=== PATIENT | male | born 2000 | race Two or more races ===

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

== ENCOUNTER 2021-03-08 15:52 | Emergency (ER) | payer OTHER ==
[~2021-03-08] VITALS: Ht 167.6 cm; Wt 89.4 kg
[2021-03-08 16:58] VITALS: BP 135/87
== END 2021-03-08 17:00 | disposition home or self-care (01) ==
LOC: ER 15:52
DX: R07.89 Other chest pain (principal); F12.10 Cannabis abuse, uncomplicated; R42 Dizziness and giddiness
CPT/HCPCS: 71046; 93005

== ENCOUNTER 2022-05-27 05:11 | Emergency (ER) | payer OTHER ==
[~2022-05-27] VITALS: Ht 167.6 cm; Wt 88.0 kg
[2022-05-27 08:23] VITALS: BP 150/99
== END 2022-05-27 09:29 | disposition home or self-care (01) ==
LOC: ER 05:13
DX: R51.9 Headache, unspecified (principal); F12.10 Cannabis abuse, uncomplicated
CPT/HCPCS: 70450

== ENCOUNTER 2022-05-30 18:27 | Emergency (ER) | payer OTHER ==
[~2022-05-30] VITALS: Ht 167.6 cm; Wt 86.3 kg
[2022-05-30 19:20] VITALS: BP 138/95
[2022-05-30] MEDS ORDERED: AMOX-277 PO (20:35)
== END 2022-05-30 20:45 | disposition home or self-care (01) ==
LOC: ER 18:27
DX: J32.9 Chronic sinusitis, unspecified (principal); F12.10 Cannabis abuse, uncomplicated

== ENCOUNTER 2022-06-05 02:55 | Emergency (ER) | payer OTHER ==
[~2022-06-05] VITALS: Ht 167.6 cm; Wt 86.4 kg
[~2022-06-05 02:55] MED LIST: AMOX-277 PO
[2022-06-05 03:37] LABS: Basophils # (auto) 0 10 ^3/uL (0-0.2); Basophils % (auto) 0.6 % (0.0-2.0); Eosinophils # (auto) 0.1 10 ^3/uL (0-0.8); Eosinophils % (auto) 1.4 % (0.0-7.0); Lymphocytes # (auto) 1.8 10 ^3/uL (0.4-5.4); Lymphocytes % (auto) 22.5 % (10.0-50.0); Mean Corpuscular Hemoglobin 29.5 pg (28.0-32.0); Mean Corpuscular Hgb Conc. 34.1 g/dL (32.0-36.0); Mean Corpuscular Volume 86.5 fL (80.0-100.0); Monocytes # (auto) 0.6 10 ^3/uL (0-1.3); Monocytes % (auto) 7.6 % (0.0-12.0); Neutrophils # (auto) 5.6 10 ^3/uL (1.6-8.6); Neutrophils % (auto) 67.9 % (37.0-80.0); Nucleated Red Blood Cells % 0.1 %; Red Blood Cells 5.78 10^6/uL (4.5-5.90); White Blood Cell 8.2 10^3/uL (4.4-10.8)
[2022-06-05 03:55] LABS: Albumin 4.4 g/dL (3.4-5.0); Calcium 9.1 mg/dL (8.5-10.1); Potassium 3.8 mmol/L (3.5-5.1)
[2022-06-05 03:58] LABS: Bilirubin, Total 0.7 mg/dL (0.2-1.0); Total Protein 7.7 g/dL (6.4-8.2)
[2022-06-05] MEDS ORDERED: HYDR50CA PO (07:40)
[2022-06-05 08:14] VITALS: BP 129/86
== END 2022-06-05 08:24 | disposition home or self-care (01) ==
LOC: ER 02:55
DX: R07.89 Other chest pain (principal); F41.9 Anxiety disorder, unspecified; F12.10 Cannabis abuse, uncomplicated
CPT/HCPCS: 36415; 71045; 80053; 83880; 84484; 85025; 93005

== ENCOUNTER 2022-06-07 13:13 | Emergency (ER) | payer OTHER ==
[~2022-06-07 13:13] MED LIST changes: +HYDR50CA PO
== END 2022-06-07 16:17 | disposition left against medical advice (07) ==
LOC: ER 13:13
DX: H92.03 Otalgia, bilateral (principal); Z53.21 Procedure and treatment not carried out due to patient leaving prior to being seen by health care provider

== ENCOUNTER 2022-06-09 22:04 | Emergency (ER) | payer OTHER ==
[~2022-06-09] VITALS: Ht 167.6 cm; Wt 86.0 kg
[2022-06-09 23:16] VITALS: BP 144/87
== END 2022-06-10 00:24 | disposition left against medical advice (07) ==
LOC: ER 22:05
DX: R51.9 Headache, unspecified (principal); H92.09 Otalgia, unspecified ear; Z53.21 Procedure and treatment not carried out due to patient leaving prior to being seen by health care provider

== ENCOUNTER 2022-06-22 22:23 | Emergency (ER) | payer MEDICAID, OTHER ==
[~2022-06-22] VITALS: Ht 167.6 cm; Wt 100.0 kg
[2022-06-22] MEDS ORDERED: LORazepam 2MG/ML-1ML VIAL IV ONE (22:30)
[2022-06-22] MEDS ORDERED: SODIUM CHLORIDE 0.9% 1,000 ML IV ONE (22:30)
[2022-06-23 01:06] LABS: Basophils # (auto) 0 10 ^3/uL (0-0.2); Basophils % (auto) 0.2 % (0.0-2.0); Eosinophils # (auto) 0 10 ^3/uL (0-0.8); Eosinophils % (auto) 0.3 % (0.0-7.0); Hemoglobin 15.8 g/dL (13.5-17.5); Lymphocytes # (auto) 0.8 10 ^3/uL (0.4-5.4); Lymphocytes % (auto) 6.4 % (10.0-50.0); Mean Corpuscular Hemoglobin 29.7 pg (28.0-32.0); Mean Corpuscular Hgb Conc. 35.1 g/dL (32.0-36.0); Mean Corpuscular Volume 84.5 fL (80.0-100.0); Monocytes # (auto) 0.8 10 ^3/uL (0-1.3); Monocytes % (auto) 6.9 % (0.0-12.0); Neutrophils # (auto) 10.2 10 ^3/uL (1.6-8.6); Neutrophils % (auto) 86.2 % (37.0-80.0); Red Blood Cells 5.32 10^6/uL (4.5-5.90); Red Cell Distribution Width 13.4 % (11.8-14.3); White Blood Cell 11.9 10^3/uL (4.4-10.8)
[2022-06-23 01:27] LABS: Albumin 4.1 g/dL (3.4-5.0); BUN/Creatinine Ratio 10.8; Calcium 8.8 mg/dL (8.5-10.1)
[2022-06-23 01:30] LABS: Bilirubin, Total 0.8 mg/dL (0.2-1.0); Total Protein 7.1 g/dL (6.4-8.2)
[2022-06-23 03:01] LABS: Urine Bacteria FEW /hpf (None Seen); Urine Blood Negative /uL (Negative); Urine Specific Gravity 1.004 (1.001-1.035); Urine WBC <1 /hpf (0 - 3)
[2022-06-23] MEDS ORDERED: CEPH-322 PO (05:20)
[2022-06-23 05:45] VITALS: BP 125/71
[2022-06-24] MEDS ORDERED: CEPH-322 PO (17:22)
[2022-06-26] MEDS ORDERED: CEPH-510 PO (16:02)
== END 2022-06-23 06:16 | disposition home or self-care (01) ==
LOC: ER 22:23 → EDBD 22:23 → ER 06-23 05:58
DX: R07.89 Other chest pain (principal); F41.9 Anxiety disorder, unspecified; D72.829 Elevated white blood cell count, unspecified; Z79.2 Long term (current) use of antibiotics; Z79.899 Other long term (current) drug therapy
CPT/HCPCS: 36415; 71045; 80053; 81001; 84484; 85025; 85379; 93005; 96361; 96374; 99285; J2060; J7030

== ENCOUNTER 2023-08-23 21:21 | Emergency (ER) | payer MEDICAID ==
[~2023-08-23] VITALS: Ht 167.6 cm; Wt 97.4 kg
[~2023-08-23 21:21] MED LIST changes: -AMOX-277 PO; +AMOX875T4 PO; +CEPH-510 PO; +CEPH250C PO
[2023-08-23 21:33] VITALS: BP 150/98; PULSE 113; RESP 17; O2SAT 96
[2023-08-23 21:42] LABS: Basophils # (auto) 0 10 ^3/uL (0-0.2); Basophils % (auto) 0.5 % (0.0-2.0); Eosinophils # (auto) 0.2 10 ^3/uL (0-0.8); Eosinophils % (auto) 2.1 % (0.0-7.0); Hematocrit 48.8 % (41.0-53.0); Hemoglobin 16.7 g/dL (13.5-17.5); Lymphocytes # (auto) 2.3 10 ^3/uL (0.4-5.4); Lymphocytes % (auto) 26.7 % (10.0-50.0); Mean Corpuscular Hemoglobin 29.6 pg (28.0-32.0); Mean Corpuscular Hgb Conc. 34.2 g/dL (32.0-36.0); Mean Corpuscular Volume 86.7 fL (80.0-100.0); Monocytes # (auto) 0.6 10 ^3/uL (0-1.3); Monocytes % (auto) 6.5 % (0.0-12.0); Neutrophils # (auto) 5.6 10 ^3/uL (1.6-8.6); Neutrophils % (auto) 64.2 % (37.0-80.0); Red Blood Cells 5.63 10^6/uL (4.5-5.90); Red Cell Distribution Width 13.2 % (11.8-14.3); White Blood Cell 8.7 10^3/uL (4.4-10.8)
[2023-08-23 21:59] LABS: Alanine Aminotransferase 96 U/L (7-40); Alkaline Phosphatase 79 U/L (46-116); Anion Gap 9 (5-15); Aspartate Aminotransferase 36 U/L (13-40); BUN/Creatinine Ratio 11.5 (10.0-20.0); Bilirubin, Total 0.8 mg/dL (0.2-1.0); Blood Urea Nitrogen 11 mg/dL (9-23); Calcium 9.7 mg/dL (8.7-10.4); Carbon Dioxide 23 mmol/L (20-30); Chloride 108 mmol/L (98-107); Glucose 143 mg/dL (74-106); Potassium 3.2 mmol/L (3.5-5.1); Sodium 140 mmol/L (136-145)
[2023-08-23 22:00] LABS: Total Protein 7.6 g/dL (5.7-8.2)
[2023-08-23 22:22] LABS: INR 0.98 (0.9-1.15); Partial Thromboplastin Time 26.1 SEC (24.5-34.5); Prothrombin Time 10.3 sec (9.3-11.8)
== END 2023-08-23 23:32 | disposition left against medical advice (07) ==
LOC: ER 21:21
DX: R00.2 Palpitations (principal); Z53.21 Procedure and treatment not carried out due to patient leaving prior to being seen by health care provider
CPT/HCPCS: 36415; 80053; 83735; 83880; 84484; 85025; 85610; 85730; 93005

== ENCOUNTER 2024-05-31 17:12 | Emergency (ER) | payer MEDICAID ==
[~2024-05-31] VITALS: Ht 170.2 cm; Wt 95.5 kg
[2024-05-31] MEDS ORDERED: IBUP-1456 PO (21:54)
[2024-05-31 22:05] VITALS: BP 138/84; PULSE 74; RESP 18; TEMP 98.3; O2SAT 97
== END 2024-05-31 22:08 | disposition home or self-care (01) ==
LOC: ER 17:12
DX: S83.92XA Sprain of unspecified site of left knee, initial encounter (principal); F12.10 Cannabis abuse, uncomplicated; W51.XXXA Accidental striking against or bumped into by another person, initial encounter; Y93.72 Activity, wrestling; Y92.89 Other specified places as the place of occurrence of the external cause; Y99.8 Other external cause status
CPT/HCPCS: 29505; 73562

== ENCOUNTER 2025-03-11 14:03 | Inpatient (IN) | payer MEDICAID ==
[~2025-03-11] VITALS: Ht 167.6 cm; Wt 98.7 kg
[~2025-03-11 14:03] MED LIST changes: +IBUP-1456 PO
--- NOTE | 2025-03-11 14:33 | ED.PDOC ---
GI ASSESSMENT HPI Comments HPI: 25-year-old male presents to the emergency department with a chief complaint of blood in stool onset 3 months. Patient has been experiencing intermittent blood in stool, bright red, for the past 3 months as well as LLQ pain. For the past 2 days, stool has been dark, black color and is also experiencing nausea. Denies vomiting, chest pain, dysuria, hematuria, hematemesis, fever, chills. No other symptoms or modifying factors present at this time. Initial Vitals BP: 160/109 HR: 113 RR: 16 O2 Sat: 98 % Temp: 98 F Past Medical history: anxiety Past Surgical history: Denies Medications: Denies Social History: marijuana Allergies: NKDA HPI: Poor Historian. Past Medical History: Past Surgical History: REVIEW OF SYSTEMS: CONSTITUTIONAL: Denies acute: fever, diaphoresis, chills, generalized weakness. HEAD: Denies acute: headache, photophobia Eyes: Denies acute: Double vision, vision loss, eye pain, eye discharge. EARS: Denies acute: tinnitus, hearing loss, ear discharge, ear pain, THROAT: Denies acute: sore throat, swelling, difficulty swallowing , pain with swallowing, change in voice. NECK: Denies acute: neck pain, neck swelling, stiff neck. HEART: Denies acute : chest pain, palpitations, LUNGS: Denies acute: SOB, wheezing, cough, hemoptysis ABDOMEN: Denies acute: Vomiting, diarrhea, hematemesis, SKIN: Denies acute: rash, redness, lesions, itchiness. EXTREMITIES: Denies acute: calf pain, numbness, tingling, weakness, denies pain in extremity. Denies acute: Low back pain. Neuro: Denies acute: focal neurological deficit, motor or sensory focal neurological deficit, tremors, seizure like activity, confusion, dizziness, change in mental status, loss of bowel or bladder function, cauda equina like symptoms. : Denies acute: dysuria, hematuria, flank pain, increase in urinary frequency. PSYCH: Denies acute: hallucination, suicidal ideation, homicidal ideation. PHYSICAL EXAM: General: -----[id number]---acute distress, awake and alert. Head: normocephalic, atraumatic. Neck: supple, trachea is midline, no swelling. Throat: Normal phonation. Eyes:, no erythema, no purulent discharge, no proptosis, no icterus. Heart: regular rate, regular rhythm, no significant murmur appreciated. Lungs: no apparent respiratory distress, Able to speak in full sentences. No wheezing, no rhonchi, no crackles. No stridors Clear to auscultation bilaterally. Abdomen: Left-sided tender to palpation, non distended, soft, no guarding, no rebound, + bowel sounds. Obese Neuro: Awake, Alert, oriented to name, self, situation, follows commands GCS=15. Speech is normal. Skin: no petechia, no purpura, no cyanosis, non-pale, not jaundice. Lower extremities: --no - Pitting edema no deformity, no focal swelling, no calf TTP. Makes eye contact. moves all four extremities. Face: no apparent facial droop. Ambulating in the ED independently. ED COURSE: DISCLAIMER: This medical document was created using an electronic medical record system with voice recognition software and computerized dictation system. Although this document has been carefully reviewed, there might still be some phonetic and typographical errors. Occasional wrong-word or "sound-alike" substitutions may have occurred due to the inherent limitations of voice recognition software. These areas are purely typographical due to imperfections of the software programs and do not reflect any compromise in the patient's medical care. Please read the chart carefully and recognize, using context, where these substitutions have occurred. Chief Complaint: GI Bleed Time Seen by MD: 14:25 Primary Care Provider: YOUNG Reviewed Notes: Medications, Allergies Allergies: Coded Allergies: NO KNOWN ALLERGIES (Unverified , 03/29/19) Home Meds Active Scripts Ibuprofen (Ibuprofen) 800 Mg Tab, 1 TAB PO TID PRN, #30 TAB 0 Refills Prov:PAUL DUONG 05/31/24 Cephalexin ( Keflex 500) 500 Mg Cap, 1 CAP PO TID for 7 Days, #21 CAP Prov:CANDIS HOLMAN MD 06/26/22 Cephalexin (KEFLEX CAPSULE) 250 Mg Cp, 500 MG PO TID for 5 Days, #15 BOTTLE Prov:CANDIS HOLMAN MD 06/24/22 Cephalexin (KEFLEX CAPSULE) 250 Mg Cp, 500 MG PO TID for 5 Days, #15 Prov:CANDIS HOLMAN MD 06/23/22 Hydroxyzine Pamoate (Vistaril) 50 Mg Cap, 50 MG PO QHSP PRN, #30 CAP Prov:DOMINIC RDZ 06/05/22 Amoxicillin & Pot Clavulanate (Amoxicillin/Potassium Cla) 875 Mg Tab, 1 TAB PO BID for 7 Days, #14 TAB Prov:MALLIKA LEGER 05/30/22 Information Source: Patient Mode of Arrival: Ambulatory Timing: Months Duration: Intermittent Prehospital treatment: None Quality: None Vomitus: None Stool: Tarry, Blood Streaked Severity: Moderate Recent: None Recent Hx of: None Pain Location: LLQ Modifying Factors: Nothing Associated sign and symptoms: Nausea, Melena, Abdominal Pain (LLQ), Blood in Stool Past Medical History PAST MEDICAL HISTORY: Anxiety Surgical History: Denies all surgeries Family History Family History: Unknown Social History Smoker: Non-Smoker Alcohol: Denies ETOH Use Drugs: Marijuana Lives In: Home Was a procedure done? Was a procedure done?: No GI differential Dx Differential Diagnosis: Other (DDX include but not limited to diverticulitis, colitis, gastroenteritis, acute abdomen, SBO, enteritis, constipation, volvulus, appendicitis, Gallbladder disease, choledocolithiasis, ascending cholangitis, pancreatitis, intraAbdominal mass/neoplasm, hepatitis, UTI, pylonephritis, kidney stone, aneurysm, dissection, Inflammatory bowel disease, gastroparesis, ischemic bowel.) X-Ray, Labs, Meds, VS Vital Signs Date Time Temp Pulse Resp B/P (MAP) Pulse Ox O2 Delivery O2 Flow Rate FiO2 03/11/25 17:44 132 20 97 Room Air 03/11/25 17:44 98.5 124 20 150/110 (123) 97 98.5 03/11/25 14:23 98.0 113 16 160/109 (126) 98 98.0 Lab Test 03/11/25 16:56 03/11/25 14:41 03/11/25 14:38 03/11/25 14:34 Range/Units Lactic Acid Level 2.4 *H 2.1 *H 0.4-2.0 mmol/L White Blood Count 5.8 4.4-10.8 10^3/uL Red Blood Count 6.16 H 4.5-5.90 10^6/uL Hemoglobin 18.1 H 13.5-17.5 g/dL Hematocrit 52.3 41.0-53.0 % Mean Corpuscular Volume 84.8 80.0-100.0 fL Mean Corpuscular Hemoglobin 29.4 28.0-32.0 pg Mean Corpuscular Hemoglobin Concent 34.7 32.0-36.0 g/dL Red Cell Distribution Width 13.4 11.8-14.3 % Platelet Count 212 140-450 10^3/uL Mean Platelet Volume 9.8 6.9-10.8 fL Neutrophils (%) (Auto) 51.2 37.0-80.0 % Lymphocytes (%) (Auto) 31.8 10.0-50.0 % Monocytes (%) (Auto) 13.3 H 0.0-12.0 % Eosinophils (%) (Auto) 3.2 0.0-7.0 % Basophils (%) (Auto) 0.5 0.0-2.0 % Neutrophils # (Auto) 3.0 1.6-8.6 10 ^3/uL Lymphocytes # (Auto) 1.9 0.4-5.4 10 ^3/uL Monocytes # (Auto) 0.8 0-1.3 10 ^3/uL Eosinophils # (Auto) 0.2 0-0.8 10 ^3/uL Basophils # (Auto) 0 0-0.2 10 ^3/uL Nucleated Red Blood Cells 0.1 % Sodium Level 140 136-145 mmol/L Potassium Level 3.5 3.5-5.1 mmol/L Chloride Level 104 98-107 mmol/L Carbon Dioxide Level 24 20-31 mmol/L Anion Gap 12 5-15 Blood Urea Nitrogen 8 L 9-23 mg/dL Creatinine 0.87 0.700-1.30 mg/dL Glomerular Filtration Rate Calc 123 >90 mL/min BUN/Creatinine Ratio 9.2 L 10.0-20.0 Serum Glucose 99 74-106 mg/dL Calcium Level 9.5 8.7-10.4 mg/dL Magnesium Level 2.0 1.6-2.6 mg/dL Total Bilirubin 0.7 0.2-1.0 mg/dL Aspartate Amino Transferase (AST) 45 H <34 U/L Alanine Aminotransferase (ALT) 82 H 7-40 U/L Alkaline Phosphatase 79 46-116 U/L Total Protein 7.7 5.7-8.2 g/dL Albumin 5.0 H 3.2-4.8 g/dL Lipase 30 12-53 U/L Urine Color Colorless Yellow Urine Clarity Clear Clear Urine pH 6.0 5.0-9.0 Urine Specific [place] 1.005 1.001-1.035 Urine Protein Negative Negative Urine Ketones Negative Negative Urine Blood Negative Negative /uL Urine Nitrite Negative Negative Urine Bilirubin Negative Negative Urine Urobilinogen Normal Negative mg/dL Urine Leukocyte Esterase Negative Negative /uL Urine RBC None seen 0 - 3 /hpf Urine Microscopic WBC 1 0-3 /HPF Urine Squamous Epithelial Cells None seen <5 /hpf Urine Bacteria None seen None Seen /hpf Urine Glucose Normal Normal mg/dL Stool Occult Blood Negative Negative Stool Occult Blood Sample #3 Negative Current Medications Medications (Trade) Dose Ordered Sig/Desi Route Start Time Stop Time Status Last Admin Sodium Chloride 1,000 ml @ 1,000 mls/hr Q1H ONCE IV 03/11/25 14:30 03/11/25 15:29 DC 03/11/25 15:29 Pantoprazole Sodium (Protonix) 40 mg ONCE ONCE IV 03/11/25 14:30 03/11/25 14:31 DC 03/11/25 15:46 Ciprofloxacin 200 ml @ 200 mls/hr ONCE ONCE IV 03/11/25 17:45 03/11/25 18:44 DC 03/11/25 18:52 Sodium Chloride 1,000 ml @ 1,000 mls/hr Q1H ONCE IV 03/11/25 17:45 03/11/25 18:44 DC 03/11/25 18:45 Sodium Chloride 1,000 ml @ 1,000 mls/hr Q1H ONCE IV 03/11/25 17:45 03/11/25 18:44 AK 03/11/25 18:03 [place] [address] Ph: [phone] DIAGNOSTIC IMAGING Diagnostic Imaging Report : [id number] Signed PATIENT: LAZARO CHUNG ACCT: [id number] UNIT: [id number] : 2000 LOC: ER ROOM / BED: / AGE / SEX: 25 / M ADM STATUS: REG ER SERVICE 1428 ORDERING PHYSICIAN: WAYNE MURDOCK DO PROCEDURE(s): ABPLIV - CT AB PEL WITH IV CON ONLY REASON: rectal bleed ORDER NUMBER(s): [id number], ACCESSION NUMBER(s): [id number] Indication: rectal bleed Technique: CT axial images of the abdomen and pelvis are obtained with intravenous contrast. Coronal and sagittal reformats were obtained. Radiation Dose Information: CTDI volume is 16 mGy. Dose-length product is 864 mGy*cm Comparison: None FINDINGS: The lung bases demonstrate no pleural effusion. Adrenal glands, spleen, pancreas unremarkable. Hepatic steatosis. No CT evidence for cholelithiasis. No hydronephrosis. Stomach partially distended. Small bowel loops normal in caliber. Normal appendix. Moderate volume stool in the colon. Abdominal aorta normal in caliber. Bladder distended. No free pelvic fluid. No inguinal lymphadenopathy. No aggressive osseous process. IMPRESSION: No CT evidence for acute abnormality of the abdomen / pelvis. Hepatic steatosis. ATED BY: CINDY VALENCIA MD DICTATED DATE/TIME: 03/11/251707 SIGNED BY: CINDY VALENCIA MD SIGNED DATE/TIME: 03/11/251707 CC: Time of 1ST Reevaluation: 14:55 Reevaluation 1ST: Unchanged Patient Education/Counseling: Diagnosis, Treatment Family Education/Counseling: No Family Present Comments Patient presented with the above HPI.---rectal bleed and abdominal pain---workup was initiated. patient was found with the above mentioned diagnosis. the following medications were ordered: please refer to order lists of meds and tests obtained by myself Dr. Murdock. Patient ED course and VS have been stabilized. Patient has been reassessed in the ED and remained in a stable condition. Pertinent incidental findings were discussed with the patient and/or family. Patient/family voices understanding and is agreeable with plan. Patient has been observed in the ED adequate length of time to insure improvement/stability. Escalation of care considered: Consideration of escalation to observation or admission Patient's lactic acid was rising. Sepsis protocol was initiated with weight based fluid resuscitation. Patient was ADMITTED to the medicine team for further evaluation and treatment of their presentation. All the reports of any imaging studies that were ordered by myself were reviewed by myself. Departure 1 Departure Time of Disposition: 15:54 Impression: Primary Impression: GI bleed Disposition: ADMITTED INPATIENT Admit to: Tele Condition: Guarded Discharged With: Self Critical Care Note Critical Care Time?: No I personally scribed for WAYNE MURDOCK DO ([email or web address]) on 03/11/25 at 14:33. Electronically submitted by Veronica Nunn ([email or web address]). I personally scribed for WAYNE MURDOCK DO ([email or web address]) on 03/11/25 at 17:37. Electronically submitted by Veronica Nunn ([email or web address]). WAYNE MURDOCK DO Mar 11, 2025 14:33
[2025-03-11 14:58] LABS: Basophils # (auto) 0 10 ^3/uL (0-0.2); Eosinophils # (auto) 0.2 10 ^3/uL (0-0.8); Mean Corpuscular Volume 84.8 fL (80.0-100.0); Monocytes # (auto) 0.8 10 ^3/uL (0-1.3); Nucleated Red Blood Cells % 0.1 %; White Blood Cell 5.8 10^3/uL (4.4-10.8)
[2025-03-11 15:00] LABS: Basophils % (auto) 0.5 % (0.0-2.0); Eosinophils % (auto) 3.2 % (0.0-7.0); Hematocrit 52.3 % (41.0-53.0); Hemoglobin 18.1 g/dL (13.5-17.5); Lymphocytes # (auto) 1.9 10 ^3/uL (0.4-5.4); Lymphocytes % (auto) 31.8 % (10.0-50.0); Mean Corpuscular Hemoglobin 29.4 pg (28.0-32.0); Mean Corpuscular Hgb Conc. 34.7 g/dL (32.0-36.0); Monocytes % (auto) 13.3 % (0.0-12.0); Neutrophils % (auto) 51.2 % (37.0-80.0); Platelet Count (auto) 212 10^3/uL (140-450); Red Blood Cells 6.16 10^6/uL (4.5-5.90); Red Cell Distribution Width 13.4 % (11.8-14.3)
[2025-03-11 15:02] LABS: Urine Bacteria None Seen /hpf (None Seen)
[2025-03-11 15:18] LABS: Urine Blood Negative /uL (Negative); Urine Clarity Clear (Clear); Urine Color Colorless (Yellow); Urine Protein, UAD Negative (Negative); Urine Specific Gravity 1.005 (1.001-1.035); Urine Squamous Epithelial Cell None Seen /hpf (<5); Urine Urobilinogen Normal (Negative); Urine WBC 1 /HPF (0-3)
[2025-03-11 15:19] LABS: Lactic Acid w/Reflex 2.1 mmol/L (0.4-2.0)
[2025-03-11] MEDS: IOHEXOL 300 MG/ML 100ML BOTTLE IJ ONE (15:20)
[2025-03-11 15:28] LABS: Alkaline Phosphatase 79 U/L (46-116); Anion Gap 12 (5-15); BUN/Creatinine Ratio 9.2 (10.0-20.0); Calcium 9.5 mg/dL (8.7-10.4); Carbon Dioxide 24 mmol/L (20-31); Chloride 104 mmol/L (98-107); Glucose 99 mg/dL (74-106); Lipase 30 U/L (12-53); Sodium 140 mmol/L (136-145); Total Protein 7.7 g/dL (5.7-8.2)
[2025-03-11 15:29] LABS: Alanine Aminotransferase 82 U/L (7-40); Aspartate Aminotransferase 45 U/L (<34); Bilirubin, Total 0.7 mg/dL (0.2-1.0); Blood Urea Nitrogen 8 mg/dL (9-23); Potassium 3.5 mmol/L (3.5-5.1)
[2025-03-11] MEDS: SODIUM CHLORIDE 0.9% 1,000 ML IV ONE ×3 (15:29→18:45)
[2025-03-11] MEDS: PANTOPRAZOLE 40 MG/10 ML VIAL INJ IV ONE (15:46)
--- NOTE | 2025-03-11 17:10 | DVH ---
Indication: rectal bleed Technique: CT axial images of the abdomen and pelvis are obtained with intravenous contrast. Coronal and sagittal reformats were obtained. Radiation Dose Information: CTDI volume is 16 mGy. Dose-length product is 864 mGy*cm Comparison: None FINDINGS: The lung bases demonstrate no pleural effusion. Adrenal glands, spleen, pancreas unremarkable. Hepatic steatosis. No CT evidence for cholelithiasis. No hydronephrosis. Stomach partially distended. Small bowel loops normal in caliber. Normal appendix. Moderate volume stool in the colon. Abdominal aorta normal in caliber. Bladder distended. No free pelvic fluid. No inguinal lymphadenopa thy. No aggressive osseous process. IMPRESSION: No CT evidence for acute abnormality of the abdomen / pelvis. Hepatic steatosis.
[2025-03-11] MEDS: CIPROFLOXACIN 400MG/200ML 200 ML IV ONE (18:52)
[2025-03-12] MEDS ORDERED: ACETAMINOPHEN 325 MG TAB PO PRN (00:15)
[2025-03-12] MEDS ORDERED: hydrOXYzine 25 MG TAB or CAP PO PRN (00:15)
[2025-03-12] MEDS: SUCRALFATE 1 GM/10 ML ORAL SUSP PO ONE (01:16)
--- NOTE | 2025-03-12 04:55 | DVHHPRES ---
History of Present Illness Resident Creating Document: LAURAPANFILOROBBEA RESIDENT History of Present Illness Patient is a 25-year-old male with a significant past medical history presented to the ED with a chief complaint of abdominal pain and noticing blood in his stools. Patient reported that since the last 6-8 months he has been having intermittently episodes where he would notice blood when he wipes off and 1 episode where there was bradford blood in the toilet. Did not seek medical attention because he has anxiety disorder was afraid to come to the hospital. Also reports symptoms of acidity, bloating after he eats a meal and has been taking a lot of [id number] medications like magnesium but only recently took omeprazole. Patient denied weight loss, denies constipation lower abdominal pain, denies nausea or vomiting, denies aspirin, alcohol use. No history of liver cirrhosis. Denies any history of inflammatory bowel disease in the family, no history of colon cancer. Past medical history: Anxiety No surgical history Social history: Patient lives with the family and reports occasional alcohol and smoking once in 2 weeks, denies any other drug use No home medications Review of Systems Review of Systems Patient seen and examined at the bedside Reports of mild bloating and acidity but denies any severe abdominal pain No constipation or diarrhea Allergies: Coded Allergies: NO KNOWN ALLERGIES (Unverified , 03/29/19) Medications Current Medications Medications Dose Ordered Sig/Desi Route Start Time Stop Time Status Last Admin Dose Admin Pantoprazole Sodium 40 mg DAILY@0600 PO 03/12/25 06:00 Sucralfate 1 gm TID@0600,1130,2200 PO 03/12/25 06:00 Acetaminophen 650 mg Q6HP PRN PO 03/12/25 00:15 Hydroxyzine Pamoate 25 mg Q6HP PRN PO 03/12/25 00:15 Exam Vital Signs Vital Signs Date Time Temp Pulse Resp B/P (MAP) Pulse Ox O2 Delivery O2 Flow Rate FiO2 03/11/25 23:53 98.2 95 20 147/92 (110) 97 98.2 03/11/25 17:44 Room Air Exam Gen - no pallor, no icterus, no cyanosis, no clubbing, no LAD, no edema . Skin - Patients skin is warm and dry. HEENT - normocephalic, atraumatic, moist mucous membranes. Neck - full ROM, no LAD, no JVD Pulmonary - B/L equal breath sounds, no crackles, no wheezing, no stridor. cardiovascular - regular S1,S2 heard, no added sounds, no murmurs heard. peripheral pulses normal radial 2+, pedal 2+. capillary refill normal <2 secs. GI - soft abdomen with mild tenderness to palpation in the left middle compartment. no hepatospleenomegaly. Bowel sounds normoactive Neurological - Patient is A/O X 3 . Bilateral upper extremity strength 5/5, bilateral lower extremity strength 5/5, no facial droop, normal speech, no tremor, no sensory deficiets. Labs/Xrays Labs Test 03/12/25 00:34 03/11/25 14:41 03/11/25 14:38 03/11/25 14:34 Range/Units Lactic Acid Level 1.7 0.4-2.0 mmol/L White Blood Count 5.8 4.4-10.8 10^3/uL Red Blood Count 6.16 H 4.5-5.90 10^6/uL Hemoglobin 18.1 H 13.5-17.5 g/dL Hematocrit 52.3 41.0-53.0 % Mean Corpuscular Volume 84.8 80.0-100.0 fL Mean Corpuscular Hemoglobin 29.4 28.0-32.0 pg Mean Corpuscular Hemoglobin Concent 34.7 32.0-36.0 g/dL Red Cell Distribution Width 13.4 11.8-14.3 % Platelet Count 212 140-450 10^3/uL Mean Platelet Volume 9.8 6.9-10.8 fL Neutrophils (%) (Auto) 51.2 37.0-80.0 % Lymphocytes (%) (Auto) 31.8 10.0-50.0 % Monocytes (%) (Auto) 13.3 H 0.0-12.0 % Eosinophils (%) (Auto) 3.2 0.0-7.0 % Basophils (%) (Auto) 0.5 0.0-2.0 % Neutrophils # (Auto) 3.0 1.6-8.6 10 ^3/uL Lymphocytes # (Auto) 1.9 0.4-5.4 10 ^3/uL Monocytes # (Auto) 0.8 0-1.3 10 ^3/uL Eosinophils # (Auto) 0.2 0-0.8 10 ^3/uL Basophils # (Auto) 0 0-0.2 10 ^3/uL Nucleated Red Blood Cells 0.1 % Sodium Level 140 136-145 mmol/L Potassium Level 3.5 3.5-5.1 mmol/L Chloride Level 104 98-107 mmol/L Carbon Dioxide Level 24 20-31 mmol/L Anion Gap 12 5-15 Blood Urea Nitrogen 8 L 9-23 mg/dL Creatinine 0.87 0.700-1.30 mg/dL Glomerular Filtration Rate Calc 123 >90 mL/min BUN/Creatinine Ratio 9.2 L 10.0-20.0 Serum Glucose 99 74-106 mg/dL Calcium Level 9.5 8.7-10.4 mg/dL Magnesium Level 2.0 1.6-2.6 mg/dL Total Bilirubin 0.7 0.2-1.0 mg/dL Aspartate Amino Transferase (AST) 45 H <34 U/L Alanine Aminotransferase (ALT) 82 H 7-40 U/L Alkaline Phosphatase 79 46-116 U/L Total Protein 7.7 5.7-8.2 g/dL Albumin 5.0 H 3.2-4.8 g/dL Lipase 30 12-53 U/L Urine Color Colorless Yellow Urine Clarity Clear Clear Urine pH 6.0 5.0-9.0 Urine Specific [place] 1.005 1.001-1.035 Urine Protein Negative Negative Urine Ketones Negative Negative Urine Blood Negative Negative /uL Urine Nitrite Negative Negative Urine Bilirubin Negative Negative Urine Urobilinogen Normal Negative mg/dL Urine Leukocyte Esterase Negative Negative /uL Urine RBC None seen 0 - 3 /hpf Urine Microscopic WBC 1 0-3 /HPF Urine Squamous Epithelial Cells None seen <5 /hpf Urine Bacteria None seen None Seen /hpf Urine Glucose Normal Normal mg/dL Stool Occult Blood Negative Negative Stool Occult Blood Sample #3 Negative Assessment/Plan Assessment/Plan Acute abdominal pain Possible acute gastritis Rule out H pylori gastritis H/O lower GI bleed Hepatic steatosis ? Generalized anxiety disorder - stool occult blood negative - Protonix and Carafate - full liquid diet - CT abdomen pelvis showed partially distended stomach but no other acute abnormality in the abdomen and pelvis - hydroxyzine PRN - IV fluids PUD prophylaxis: Protonix Goals of care discussed with the patient for over 21 minutes. Full code Time spent: 39 minutes Plan discussed with Dr. Ruiz Plan discussed with: Patient My Orders Orders - SHERWIN PIPER RESIDENT Procedure Category Date Status Time Admit ADMIT 03/11/25 Transmitted 23:24 Notify Md Of Changes [facility] 03/11/25 In Process From Base 23:24 Suction Plate Carrier Cleaner For [facility] 03/11/25 In Process 24 Hours 23:24 Emergency Dysrhythmia [facility] 03/11/25 In Process Protocol 23:24 Stat Ekg For Chest [facility] 03/11/25 In Process Pain 23:24 Pantoprazole Tablet [facility] 03/12/25 In Process (Protonix Tablet) 06:00 Sucralfate Susp [facility] 03/12/25 In Process (Carafate Susp) 06:00 Acetaminophen Tablet [facility] 03/12/25 In Process (Tylenol Tablet) 00:15 Comprehensive LAB 03/12/25 Logged Metabolic Panel 04:00 Complete Blood Count LAB 03/12/25 Logged 04:00 Sodium Chloride 0.9% [facility] 03/12/25 In Process 00:15 Full Liq Diet DIET 03/12/25 Transmitted Breakfast Hydroxyzine Oral [facility]A 03/12/25 In Process (Vistaril Oral) 00:15 Date of Service: Mar 11, 2025 Billing Provider: FIDELINA RUIZ MD Common Visit Codes: 71067-[id number] INP/OBS CARE (HIGH) Secondary Visit Codes: [id number] CARE PLAN 30 MINUTES SHERWIN PIPER RESIDENT Mar 12, 2025 04:55
[2025-03-12 05:40] VITALS: PULSE 74; RESP 15; O2SAT 98
[2025-03-12] MEDS: SODIUM CHLORIDE 0.9% 1,000 ML IV ONE (05:40)
[2025-03-12] MEDS: PANTOPRAZOLE 40 MG TAB PO SCH (06:27)
[2025-03-12] MEDS: SUCRALFATE 1 GM/10 ML ORAL SUSP PO SCH (06:27)
[2025-03-12 07:29] VITALS: PULSE 74; RESP 21; O2SAT 97
[2025-03-12 08:12] LABS: Basophils # (auto) 0 10 ^3/uL (0-0.2); Basophils % (auto) 0.4 % (0.0-2.0); Eosinophils # (auto) 0.2 10 ^3/uL (0-0.8); Eosinophils % (auto) 3.1 % (0.0-7.0); Hematocrit 44.3 % (41.0-53.0); Hemoglobin 15.4 g/dL (13.5-17.5); Lymphocytes # (auto) 1.4 10 ^3/uL (0.4-5.4); Lymphocytes % (auto) 24.7 % (10.0-50.0); Mean Corpuscular Hemoglobin 29.5 pg (28.0-32.0); Mean Corpuscular Hgb Conc. 34.8 g/dL (32.0-36.0); Mean Corpuscular Volume 84.7 fL (80.0-100.0); Monocytes % (auto) 16.7 % (0.0-12.0); Neutrophils # (auto) 3.2 10 ^3/uL (1.6-8.6); Neutrophils % (auto) 55.1 % (37.0-80.0); Nucleated Red Blood Cells % 0.1 %; Platelet Count (auto) 194 10^3/uL (140-450); Red Blood Cells 5.24 10^6/uL (4.5-5.90); Red Cell Distribution Width 13.5 % (11.8-14.3); White Blood Cell 5.8 10^3/uL (4.4-10.8)
[2025-03-12 08:35] LABS: Albumin 4.3 g/dL (3.2-4.8); Alkaline Phosphatase 65 U/L (46-116); Anion Gap 10 (5-15); BUN/Creatinine Ratio 8.5 (10.0-20.0); Bilirubin, Total 0.6 mg/dL (0.2-1.0); Calcium 9.7 mg/dL (8.7-10.4); Carbon Dioxide 25 mmol/L (20-31); Glucose 98 mg/dL (74-106); Potassium 3.6 mmol/L (3.5-5.1); Sodium 144 mmol/L (136-145); Total Protein 6.6 g/dL (5.7-8.2)
[2025-03-12 08:38] LABS: Alanine Aminotransferase 67 U/L (7-40); Aspartate Aminotransferase 36 U/L (<34); Blood Urea Nitrogen 8 mg/dL (9-23); Chloride 109 mmol/L (98-107)
[2025-03-12 09:04] VITALS: BP 129/77; PULSE 72; TEMP 98.1; O2SAT 98
[2025-03-12 13:15] VITALS: BP 131/71; PULSE 82; RESP 18; TEMP 98.4; O2SAT 97
[2025-03-12] MEDS ORDERED: PANT40T PO (17:18)
--- NOTE | 2025-03-12 17:19 | DVHDS2 ---
Discharge Summary Date of Admission Mar 11, 2025 at 23:24 Date of Discharge: Mar 12, 2025 Labs/Diagnostic Data: Laboratory Results Test 03/12/25 07:26 03/12/25 00:34 03/11/25 14:41 03/11/25 14:38 White Blood Count 5.8 10^3/uL (4.4-10.8) Red Blood Count 5.24 10^6/uL (4.5-5.90) Hemoglobin 15.4 g/dL (13.5-17.5) Hematocrit 44.3 % (41.0-53.0) Mean Corpuscular Volume 84.7 fL (80.0-100.0) Mean Corpuscular Hemoglobin 29.5 pg (28.0-32.0) Mean Corpuscular Hemoglobin Concent 34.8 g/dL (32.0-36.0) Red Cell Distribution Width 13.5 % (11.8-14.3) Platelet Count 194 10^3/uL (140-450) Mean Platelet Volume 9.5 fL (6.9-10.8) Neutrophils (%) (Auto) 55.1 % (37.0-80.0) Lymphocytes (%) (Auto) 24.7 % (10.0-50.0) Monocytes (%) (Auto) 16.7 % (0.0-12.0) Eosinophils (%) (Auto) 3.1 % (0.0-7.0) Basophils (%) (Auto) 0.4 % (0.0-2.0) Neutrophils # (Auto) 3.2 10 ^3/uL (1.6-8.6) Lymphocytes # (Auto) 1.4 10 ^3/uL (0.4-5.4) Monocytes # (Auto) 1.0 10 ^3/uL (0-1.3) Eosinophils # (Auto) 0.2 10 ^3/uL (0-0.8) Basophils # (Auto) 0 10 ^3/uL (0-0.2) Nucleated Red Blood Cells 0.1 % Sodium Level 144 mmol/L (136-145) Potassium Level 3.6 mmol/L (3.5-5.1) Chloride Level 109 mmol/L (98-107) Carbon Dioxide Level 25 mmol/L (20-31) Anion Gap 10 (5-15) Blood Urea Nitrogen 8 mg/dL (9-23) Creatinine 0.94 mg/dL (0.700-1.30) Glomerular Filtration Rate Calc 115 mL/min (>90) BUN/Creatinine Ratio 8.5 (10.0-20.0) Serum Glucose 98 mg/dL (74-106) Calcium Level 9.7 mg/dL (8.7-10.4) Total Bilirubin 0.6 mg/dL (0.2-1.0) Aspartate Amino Transferase (AST) 36 U/L (<34) Alanine Aminotransferase (ALT) 67 U/L (7-40) Alkaline Phosphatase 65 U/L (46-116) Total Protein 6.6 g/dL (5.7-8.2) Albumin 4.3 g/dL (3.2-4.8) Lactic Acid Level 1.7 mmol/L (0.4-2.0) Magnesium Level 2.0 mg/dL (1.6-2.6) Lipase 30 U/L (12-53) Urine Color Colorless (Yellow) Urine Clarity Clear (Clear) Urine pH 6.0 (5.0-9.0) Urine Specific [place] 1.005 (1.001-1.035) Urine Protein Negative (Negative) Urine Ketones Negative (Negative) Urine Blood Negative /uL (Negative) Urine Nitrite Negative (Negative) Urine Bilirubin Negative (Negative) Urine Urobilinogen Normal mg/dL (Negative) Urine Leukocyte Esterase Negative /uL (Negative) Urine RBC None seen /hpf (0 - 3) Urine Microscopic WBC 1 /HPF (0-3) Urine Squamous Epithelial Cells None seen /hpf (<5) Urine Bacteria None seen /hpf (None Seen) Urine Glucose Normal mg/dL (Normal) Test 03/11/25 14:34 Stool Occult Blood Negative (Negative) Stool Occult Blood Sample #3 (Negative) Other Laboratory Tests 03/12/25 07:26 Brief Hx & Hospital Course: 25-year-old male with a known history of chronic abdominal pain presented to the hospital with the abdominal pain found to have possible acute gastritis. CT abdomen and pelvis was done which shows no evidence of any acute pathology. Patient is currently tolerating diet. Patient was recommended to have GI consultation but he has requested outpatient follow up. Patient is being discharged under stable condition as his hemoglobin is stable and he denies any abdominal pain or any blood in the stools. Patient will be discharged on p.o. Protonix with the outpatient follow up with the PCP and GI in 1-2 weeks. Condition at Discharge: Stable Final Diagnosis/Problems List 1. Abdominal pain resolved 2. Acute gastritis/GERD 3. Generalized anxiety disorder Discharge Disposition: Home SNF Discharge Will this Physician continue t: No Discharge Instruct/Medications Diet: Regular Activity: No Restrictions, As Tolerated Follow Up/Referral: Follow up with the PCP and GI in 1-2 weeks Medications: Protonix as prescribed Discharge Statement: "Patient was advised to return to the ER or call 911 if any headaches, dizziness, shortness of breath, chest pain, abdominal pain, bleeding, fevers, or worsening of medical condition. Patient was counseled about treatment plan, medications, possible side effects, patientverbalized understanding. All questions were answered to the best of my ability. This discharge took greater then 30 minutes in planning, reviewing documentation, counseling the patient, and discussing with other team members." ASSESSMENT ASSESSMENT Assessment 1. Abdominal pain resolved 2. Acute gastritis/GERD 3. Generalized anxiety disorder Date of Service: Mar 12, 2025 Billing Provider: SHIRA VEGA MD Common Visit Codes: 20797-YMP/OBS DISCH DAY >30min SHIRA VEGA MD Mar 12, 2025 17:19
[2025-03-12 17:20] VITALS: BP 128/86; PULSE 77; RESP 20; TEMP 98.3; O2SAT 96
== END 2025-03-12 17:40 | disposition home or self-care (01) | DRG 241 ==
LOC: ER 14:03 → OVERFLOW 23:24
PROVIDERS: ATTEND Emergency Medicine
DX: K29.00 Acute gastritis without bleeding (principal); K76.0 Fatty (change of) liver, not elsewhere classified; F41.1 Generalized anxiety disorder; K21.9 Gastro-esophageal reflux disease without esophagitis; G89.29 Other chronic pain; Z79.899 Other long term (current) drug therapy
CPT/HCPCS: 36415; 74177; 80053; 81001; 82270; 83605; 83690; 83735; 85025; 86850; 86900; 86901; 87040; 96361; 96365; 96375; G0378; J2470